=== PATIENT | female | born 1955 | race Caucasian/White ===

== ENCOUNTER 2016-11-22 15:59 | Inpatient (IN) | payer OTHER ==
--- NOTE | 2016-11-22 17:29 | RAD ---
Indication: RIGHT side face and lip numbness and LEFT side finger numbness yesterday. Presently asymptomatic. Comparison: No relevant prior exams available on the [facility] PACS for comparison. Technique: Noncontrast CT vertex of skull through foramen magnum. Report: Small focus of eastman matter white matter obscuration at the posterior RIGHT frontal lobe from the level of the salazar radiata through the centrum semiovale corresponding with the RIGHT middle cerebral artery distribution. Negative for mass effect. No additional region of eastman matter white matter obscuration evident. No intra or extra-axial hemorrhage evident. Unremarkable cerebral sulci, ventricles, and basal cisterns. Unremarkable orbital contents. No suspicious calvarial or skull base lesion evident. Clear visualized paranasal sinuses and mastoid air spaces. Unremarkable scalp. IMPRESSION: Small nonmass-like region of eastman matter white matter obscuration at the posterior RIGHT frontal lobe most suspicious for a subacute infarct. Negative for mass effect. Negative for intracranial hemorrhage.
[2016-11-22 17:50] LABS: Hematocrit 39 % (35-47); Hemoglobin 13.1 g/dl (12.0-16.0); Mean Corpuscular HGB Conc 34 g/dl (31-36); Mean Corpuscular Hemoglobin 30 pg (27-31); Mean Corpuscular Volume 88 fL (80-97); Mean Platelet Volume 7 um3 (7.4-10.4); Red Blood Count 4.42 10^6/ul (4.0-5.4); Red Cell Distribution Width 13 % (10.5-15); White Blood Count 4.4 10^3/ul (3.5-10.8)
--- NOTE | 2016-11-22 17:52 | RAD ---
INDICATION: Strokelike symptoms. COMPARISON: No relevant prior exams available on the [facility] PACS for comparison. TECHNIQUE: Dual energy PA and routine lateral views of the chest were obtained. REPORT: Clear lungs and pleural spaces. Negative for pneumothorax. The heart, pulmonary vasculature, and mediastinal contours are unremarkable. Unremarkable osseous structures and soft tissue contours. IMPRESSION: No evidence for acute intrathoracic disease.
[2016-11-22 18:06] LABS: ALT 12 U/L (7-52); AST 13 U/L (13-39); Albumin 4.2 g/dL (3.2-5.2); Alkaline Phosphatase 48 U/L (34-104); Anion Gap 3 mmol/L (2-11); BUN/Creatinine Ratio 13.3 (8-20); Blood Urea Nitrogen 16 mg/dL (6-24); CO2 Carbon Dioxide 26 mmol/L (22-32); Calcium 9.6 mg/dL (8.6-10.3); Chloride 111 mmol/L (101-111); EGFR African American 59.1 (>60); Glucose 87 mg/dL (70-100); Potassium 3.9 mmol/L (3.5-5.0); Sodium 140 mmol/L (133-145); Total Protein 7.2 g/dL (6.4-8.9)
[2016-11-22 18:09] LABS: Alcohol < 10 mg/dL (<10)
[2016-11-22] MEDS ORDERED: Aspirin Low Dose CHEW TAB* 81 MG PO ONE (18:28)
--- NOTE | 2016-11-22 20:08 | RAD ---
Indication: RIGHT side facial numbness with tingling in fingers of LEFT hand yesterday. Symptoms resolved at this time. Comparison: November 22, 2016 CT. Technique: [employer] [place] 1.5 Myranda [id number] with GEM suite. MRI brain without contrast. Report: Diffusion series is negative for acute or subacute ischemia. Susceptibility series is negative for stigmata of hemosiderin deposition to indicate previous hemorrhage. Unremarkable cerebral sulci, ventricles, and basal cisterns. Encephalomalacia with volume loss and T2 hyperintensity at the RIGHT parietal lobe. Negative for mass effect. Additional few small bilateral cerebral white matter T2 hyperintensities are visualized reference the axial T2 FLAIR series with dominant 0.5 cm lesion at the RIGHT frontal lobe white matter at the level of the salazar radiata.. Preserved major intracranial flow-voids. Unremarkable orbital contents. No calvarial or skull base lesions evident. Clear paranasal sinuses and mastoid air spaces. Unremarkable scalp. IMPRESSION: 1. Negative for restricted diffusion to indicate acute or subacute ischemia. 2. Encephalomalacia at the RIGHT parietal lobe likely reflecting a previous ischemic infarct. 3. Additional few small bilateral cerebral white matter T2 hyperintensities while not entirely specific are most suggestive of chronic small vessel ischemic disease. The differential would include demyelinating disease and hyperintensities seen in association with migraine headaches.
--- NOTE | 2016-11-22 20:18 | RAD ---
Indication: RIGHT side facial numbness and tingling in fingers of LEFT hand. Symptoms now resolved. Comparison: MRI of the same date and CT of the same date. Technique: [employer] [place] 1.5 Myranda [id number] with GEM suite. MR angiography 3-D [id number] data was obtained with rotational display of the [place] of [place] and posterior fossa arteries. Report: Unremarkable intracranial internal carotid arteries as well as the first and second segments of the middle and anterior cerebral arteries. No anterior communicating artery visualized. Patent distal vertebral arteries with both contributing to the basilar artery. The basilar artery is variant diminutive in size. Unremarkable cerebellar artery origins. Patent posterior cerebral arteries are supplied both by the posterior circulation and anterior circulation via posterior communicating arteries. No intracranial aneurysm or vascular malformation evident. IMPRESSION: Normal variation without pathologic finding of the central intracranial arterial vasculature.
[2016-11-22] MEDS ORDERED: Atorvastatin* 10 MG TAB PO SCH (21:00)
[2016-11-22] MEDS: Topiramate TAB(*) 25 MG PO SCH (21:18)
[2016-11-22] MEDS: [UNRECOGNIZED DRUG - OTHER] PO SCH (21:31)
--- NOTE | 2016-11-22 22:00 | HP ---
HISTORY AND PHYSICAL: DATE OF ADMISSION: 11/22/16 ADMITTING PROVIDER: Babatunde Melissa MD PRIMARY CARE PHYSICIAN: Rose Green MD CHIEF COMPLAINT: Left third, fourth and fifth finger numbness and lower lip numbness and speech impairment lasting 5 to 10 minutes, now completely resolved. HISTORY OF PRESENT ILLNESS: The patient is a 61-year-old female with past medical history of anxiety, depression, hyperlipidemia, hypothyroidism who on day prior to admission woke approximately 10 a.m. and quickly noticed that the third, fourth and fifth fingers on her left hand were completely numb, unable to adequately grasp cup and that her lower lip and tongue also seemed numb and she was unable to speak to her dog. These symptoms lasted for 5 to 10 minutes, then completely resolved. She followed up with her primary care physician, Dr. Rose Green, for her annual physical on the morning of admission who then advised her to seek immediate evaluation in the [facility] emergency room. The patient otherwise was feeling well with no complaints. Mood has been stable on her bupropion hydrobromide, Klonopin and Risperdal. She recently restarted her Topamax 50 mg b.i.d., which she takes for weight loss. Here in the emergency room, the patient was noted to be hemodynamically stable, afebrile. Her brain CT noncontrast, impression was read as a small non-mass like region of eastman matter, white matter obscuration at the posterior right frontal lobe more suspicious for subacute infarct, negative for mass effect, negative for intracranial hemorrhage. The patient was admitted for further workup of TIA versus CVA symptoms. Dr. Cuba of Neurology was consulted. The patient was ordered brain MRI and MRA of the head which are pending along with echocardiogram and admission to telemetry floor. PAST MEDICAL HISTORY: 1. Hyperlipidemia. 2. Anxiety. 3. Depression. 4. Hypothyroidism HOME MEDICATIONS: Include: 1. Lipitor 10 mg p.o. at bedtime. 2. Bupropion hydrobromide(Aplenzin) 522 mg p.o. daily . 4. Levothyroxine 150 mcg p.o. daily. 5. Topamax 50 mg p.o. b.i.d. 6. Klonopin 4 mg p.o. at bedtime. 7. Risperdal 3 mg p.o. at bedtime. ALLERGIES: PENICILLIN which produced hives. FAMILY HISTORY: Significant for a sister with lupus, father requiring permanent pacemaker. SOCIAL HISTORY: The patient denies smoking history or alcohol use. No drug use. The patient accompanied by her . REVIEW OF SYSTEMS: The patient denies fevers, chills, nausea, vomiting, diarrhea, constipation, blood in her bowel movements or urine, dysuria, increased frequency. A complete 14-point review of systems was negative otherwise except for HPI and above. The patient denies any neurological deficits at the moment. PHYSICAL EXAMINATION GENERAL APPEARANCE: No acute distress, lying on ED gurney. VITAL SIGNS: Temperature 97.5, heart rate 68, O2 sat 98% on room air, blood pressure 112/67. HEENT: Normocephalic, atraumatic. Oropharynx without lesion. Moist mucus membranes. No cervical lymphadenopathy. NECK: Supple. RESPIRATORY: Clear to auscultation bilaterally with no wheezing, rales or rhonchi. CARDIOVASCULAR: Regular rate and rhythm. No murmurs, rubs or gallops. ABDOMEN: Soft, nontender, nondistended. No rebound or guarding. EXTREMITIES: Warm, well perfused. No peripheral edema. Pulses intact. NEUROLOGIC: Pupils are equally round and reactive to light. Extraocular motions are intact. Cranial nerves II through XII intact. Pilot Manager strength, biceps and shoulders 5/5 bilaterally, hip flexion 5/5, calves 5/5. Sensation intact bilaterally. LABORATORY DATA: White count 4.4, hemoglobin 13.1, hematocrit 39, platelets 209,000. Sodium 140, potassium 3.9, chloride 111, carbon dioxide 26, BUN 16, creatinine 1.20. Estimated GFR 46, glucose 87, lactic acid 0.7, calcium 9.6. LFT's within normal limits. Serum alcohol less than 10. IMAGING: Chest x-ray, no acute process. EKG, normal sinus rhythm. Normal axis. Normal intervals, QTC 412. No ST elevations or depressions. No T-wave inversions. CT of brain as mentioned above. ASSESSMENT AND PLAN: The patient is a 61-year-old female with a past medical history of anxiety, depression, hyperlipidemia, presenting with transient ischemic attack-like symptoms, but somewhat weird distribution with bilateral lower lip numbness along with third, fourth and fifth left finger numbness resolving after 5 to 10 minutes. Neurology was consulted (Dr. Cuba). We will get an MRI of her brain, MRA of her head, monitored on telemetry and an echo was ordered to include a bubble study to rule out PFO. We will observe for any evidence of atrial fibrillation. Of note, the patient denies any history of palpitations. For hypothyroidism, continue Synthroid 150 mcg daily. For anxiety and depression, continue bupropion hydrobromide (Aplenzin) 522 mg daily, Klonopin 4 mg q.p.m. and Risperdal 3 mg q. h.s. For hyperlipidemia, continue Lipitor 10 mg daily. The patient will be admitted to observation status, medicine telemetry unit. The patient will be able to eat a cardiac heart healthy diet. Aspirin 324 mg was given in the ED. We will continue 81 mg daily for CVA prophylaxis, given no evidence of intracranial hemorrhage. The patient is a full code. Medical surrogate is her , Rafat Jr Ozzy. [id number]/[facility] #: [id number] MTDDontae
[2016-11-22] MEDS: clonazePAM TAB(*) 1 MG PO SCH (22:38)
[2016-11-22] MEDS: risperiDONE TAB* 3 MG PO SCH (22:38)
[2016-11-23 05:16] LABS: Hematocrit 36 % (35-47); Hemoglobin 12.1 g/dl (12.0-16.0); Mean Corpuscular HGB Conc 34 g/dl (31-36); Mean Corpuscular Hemoglobin 30 pg (27-31); Mean Corpuscular Volume 88 fL (80-97); Mean Platelet Volume 7 um3 (7.4-10.4); Red Blood Count 4.06 10^6/ul (4.0-5.4); Red Cell Distribution Width 13 % (10.5-15); White Blood Count 5.1 10^3/ul (3.5-10.8)
[2016-11-23 05:25] LABS: BUN/Creatinine Ratio 14.3 (8-20); Calcium 8.9 mg/dL (8.6-10.3); EGFR African American 52.5 (>60); EGFR Non-African American 40.8 (>60); Potassium 3.5 mmol/L (3.5-5.0)
[2016-11-23] MEDS: Levothyroxine TAB* 150 MCG TAB PO SCH (05:45)
[2016-11-23] MEDS: Topiramate TAB(*) 25 MG PO SCH ×2 (07:33→20:10)
[2016-11-23] MEDS: Aspirin Low Dose CHEW TAB* 81 MG PO SCH (07:33)
[2016-11-23 10:56] LABS: Urine Bacteria Absent (Absent); Urine Bilirubin Negative (Negative); Urine Glucose Negative (Negative); Urine Nitrite Negative (Negative)
[2016-11-23] MEDS: [UNRECOGNIZED DRUG - OTHER] PO SCH (11:33)
[2016-11-23] MEDS: Acetaminophen TAB* 325 MG PO PRN ×2 (11:42→20:11)
--- NOTE | 2016-11-23 13:52 | CONS ---
CONSULTATION REPORT: DATE OF CONSULT: 11/23/16. LOCATION: She is currently in room 433, bed 1. REASON FOR CONSULT: Left finger numbness, speech difficulty. HISTORY OF PRESENT ILLNESS: Ms. Preciado is a very nice 61-year-old female with a history of hyperlipidemia, some depression and anxiety, who was in her usual state of health when she developed acute onset of left third, fourth and fifth digit numbness as well as some numbness that cross the midline across the lower lip and she also noticed some drooling and had some difficulty speaking at that time. She noted that she tried to picker packer a cup and it was more difficult to do. She tried to speak with to her dog and had more difficulty producing words. The symptoms lasted about 5 minutes and then resolved. This happened 2 days ago. She did not go to the ER initially. She went to see her primary care physician for a checkup yesterday, who based on the symptoms decided to send her to the ER for further workup. By the time she came to the ER she had been symptom free for over 24 hours. She had a brain MRI, which I reviewed, showed no evidence of DWI or ADC changes to suggest an acute stroke. She had encephalomalacia from a prior right parietal stroke and then some scattered white matter changes suggestive of chronic small vessel ischemic changes. She had an MRA of the brain, which showed no intracranial arterial abnormalities. Brain CT as well showed no acute changes. It showed an area in the right frontal lobe which was suspicious for a subacute infarct, not confirmed on the MRI. Her lab work at the time of admission was essentially normal, chloride of 113, creatinine of 1.2. She had a recent lipid panel with a cholesterol of 200 and LDL of 110. She is on a statin. She was not previously on an aspirin, but put on one yesterday. Since admission to the hospital she notes some headache in the left parietal region. She about 2 weeks ago had another headache in that area and does not have a history of headaches. There were no focal deficits at that time. She notes no focal right-sided findings. No left leg findings. No difficulty walking. No vision changes. Otherwise, she has been in her usual state of health. She denies any palpitation, shortness of breath, dyspnea on exertion, nausea, vomiting, diarrhea or constipation. She has no history of AFib or heart palpitations. PAST MEDICAL HISTORY: As noted above. CURRENT MEDICATIONS: Include; 1. Tylenol p.r.n. 2. Aspirin 81 mg daily. 3. Lipitor 10 mg at bedtime. 4. Klonopin 4 mg at bedtime. 5. Synthroid 150 mcg. 6. Bupropion 522 mg daily. 7. Risperdal 3 mg at bedtime. 8. Topamax 50 mg p.o. b.i.d. which she takes for weight loss. ALLERGIES: She is allergic to PENICILLIN. FAMILY HISTORY: Includes lupus in a sister and a father with a pacemaker. SOCIAL HISTORY: No tobacco, alcohol or drug use. REVIEW OF SYSTEMS: In 14 organ systems as noted above, otherwise negative. PHYSICAL EXAM: Vital Signs: Temperature is 98.2, pulse rate of 61, respiratory rate of 20, blood pressure 94/54, her blood pressure has been well controlled and stable during the hospitalization. In general, she is a well nourished, well developed female in no acute distress. HEENT: She is normocephalic atraumatic. Sclerae anicteric. Mucous membranes are moist. Oropharynx is clear. Nares are patent. Neck is supple. No thyromegaly. No carotid bruits. Chest: Clear to auscultation bilaterally. Cardiovascular: Regular rate and rhythm. Abdomen is nontender, nondistended. Extremities: No clubbing, cyanosis, or edema. Her skin is warm and dry. Neurologic Exam: She is awake, alert and oriented x3. Her speech is fluent. There is no dysarthria. Repetition is intact. Recall of recent and remote events is intact. Vocabulary is intact. Her mood is dysthymic. Affect is mood congruent. Cranial Nerves: II through XII. Pupils are equally round and reactive to light. Extraocular muscles are intact. Visual mon are full. Face is symmetric. Facial sensation is intact bilaterally. Hearing is symmetric bilaterally. Tongue is midline. Oropharynx is clear and palate rises symmetrically. Sternocleidomastoid and trapezius intact. She spontaneously moves all extremities, antigravity 5/5 throughout. There is no drift. Sensation is intact to light touch and pinprick in all extremities throughout and there is no deficit. DTRs are 1+ and symmetric in the upper and lower extremities bilaterally equivocal Babinski's. [id number] and rapid alternating movements are intact without any tremor or dysdiadochokinesia. Gait was not tested at this time. DIAGNOSTIC STUDIES/LAB DATA: Lab work and imaging as noted above. ASSESSMENT AND PLAN: Ms. Preciado is a 61-year-old female with a history of acute onset of left third fourth and fifth digit numbness and some lip numbness across the entire lower lip, some word finding difficulties, and drooling that lasted for about 5 minutes and resolved; this happened 2 days ago. She saw her primary care physician yesterday who put her on an aspirin and sent her to the ER. Subsequent workup in the ER today has been negative except she does have evidence of an old stroke which she was unaware of. Also her outside lab work included a cholesterol that was elevated 200, LDL of 110. At this point, her symptoms are unusual, given the specific focality it would be unusual for a TIA , although not of the question in addition she had numbness across her entire lower lip crossing midline which is atypical and more associated with anxiety. With that said, she does have risk factors including a prior stroke and hyperlipidemia. I would recommend the followin. Continue her aspirin 81 mg daily. 2. Increase her statin with a goal LDL less than 70. 3. High blood pressure control as needed. 4. She is a nondiabetic. 5. She is a nonsmoker. I am going to order a carotid ultrasound. I think, at this point, given the fact that she has no cardiac history, is stable and doing well, and that her symptoms occurred several days ago that she can have the echocardiogram as an outpatient in the next week. I would like to follow her up in clinic in 4 weeks. Assuming her carotid ultrasound is negative, I do think it is safe to go home. She is aware of the symptoms and will return to the ER immediately should she have any new symptoms develop, which she is in agreement with the plan. Thank you for the opportunity to participate in her care. [id number]/[facility] #: [id number] WOODY
--- NOTE | 2016-11-23 14:52 | PN ---
Subjective Date of Service: 11/23/16 Interval History: Pt did not sleep well but otherwise feels better (mostly less anxious now that in hospital). Brain MRI with e/o of old stroke but nothing acute or subacute. NAEON Objective Active Medications: Acetaminophen (Tylenol Tab*) 650 mg PO Q6H PRN PRN Reason: HEADACHE Last Admin: 11/23/16 11:42 Dose: 650 mg Aspirin (Aspirin Low Dose Tab*) 81 mg PO DAILY [facility] Last Admin: 11/23/16 07:33 Dose: 81 mg Atorvastatin Calcium (Lipitor*) 40 mg PO 2100 [facility] Clonazepam (Klonopin Tab(*)) 4 mg PO BEDTIME [facility] Last Admin: 11/22/16 22:38 Dose: 4 mg Levothyroxine Sodium (Synthroid Tab*) 150 mcg PO 0600 [facility] Last Admin: 11/23/16 05:45 Dose: 150 mcg Bupropion Hydrobromide [ Aplenzin] 522 Mg 522 mg PO DAILY [facility] Last Admin: 11/23/16 11:33 Dose: Not Given Risperidone (Risperdal*) 3 mg PO BEDTIME [facility] Last Admin: 11/22/16 22:38 Dose: 3 mg Topiramate (Topamax(*)) 50 mg PO BID [facility] Last Admin: 11/23/16 07:33 Dose: 50 mg Vital Signs 11/22/16 11/22/16 11/22/16 19:10 22:38 23:14 Temperature 99 F 98.6 F Pulse Rate 80 81 Respiratory 16 14 22 Rate Blood Pressure 119/72 120/68 (mmHg) O2 Sat by Pulse 100 96 Oximetry 11/23/16 11/23/16 11/23/16 00:38 03:13 07:15 Temperature 98.2 F 98.2 F Pulse Rate 87 61 Respiratory 16 18 20 Rate Blood Pressure 98/64 94/54 (mmHg) O2 Sat by Pulse 96 97 Oximetry 11/23/16 11/23/16 07:30 11:24 Temperature 98.3 F Pulse Rate 73 Respiratory 20 24 Rate Blood Pressure 116/61 (mmHg) O2 Sat by Pulse 97 Oximetry Oxygen Devices in Use Now: None Appearance: NAD, lying in bed Eyes: No Scleral Icterus, PERRLA Ears/Nose/Mouth/Throat: NL Teeth, Lips, Gums, Mucous Membranes Moist Neck: NL Appearance and Movements; NL JVP, Trachea Midline Respiratory: Symmetrical Chest Expansion and Respiratory Effort, Clear to Auscultation Cardiovascular: NL Sounds; No Murmurs; No JVD, RRR Abdominal: NL Sounds; No Tenderness; No Distention, No Hepatosplenomegaly Lymphatic: No Cervical Adenopathy Extremities: No Edema Skin: No Rash or Ulcers, No Nodules or Sclerosis Neurological: Alert and Oriented x 3, NL Sensation, NL Muscle Strength and Tone , - - CN II-XII intact. Casino Cage Manager, bicep, hip flexion, calf 5/5 b/l. Nutrition: Taking PO's Result Diagrams: 11/23/16 04:58 11/23/16 04:47 Additional Lab and Data: Laboratory Results - last 24 hr 11/22/16 11/22/16 11/22/16 10:19 17:20 17:20 WBC 4.4 RBC 4.42 Hgb 13.1 Hct 39 MCV 88 MCH 30 MCHC 34 RDW 13 Plt Count 209 MPV 7 L Neut % (Auto) 63.2 Lymph % (Auto) 27.1 [place] % (Auto) 7.5 Eos % (Auto) 1.6 Baso % (Auto) 0.6 Absolute Neuts (auto) 2.8 Absolute Lymphs (auto) 1.2 Absolute Monos (auto) 0.3 Absolute Eos (auto) 0.1 Absolute Basos (auto) 0 Absolute Nucleated RBC 0 Nucleated RBC % 0 INR (Anticoag Therapy) Sodium 140 Potassium 3.9 Chloride 111 Carbon Dioxide 26 Anion Gap 3 BUN 16 Creatinine 1.20 H Est GFR ( Amer) 59.1 Est GFR (Non-Af Amer) 46.0 BUN/Creatinine Ratio 13.3 Glucose 87 Lactic Acid Calcium 9.6 Total Bilirubin 0.60 AST 13 ALT 12 Alkaline Phosphatase 48 Troponin I 0.00 Total Protein 7.2 Albumin 4.2 Globulin 3.0 Albumin/Globulin Ratio 1.4 Urine Color Yellow Urine Appearance Cloudy Urine pH 6.0 Ur Specific [place] 1.023 Urine Protein Negative Urine Ketones Negative Urine Blood Negative Urine Nitrate Negative Urine Bilirubin Negative Urine Urobilinogen Negative Ur Leukocyte Esterase 3+ H Urine WBC (Auto) 3+(>20/hpf) H Urine RBC (Auto) Absent Ur Squamous Epith Cells Present H Ur Renal Epithelial Cell Present H Urine Bacteria Absent Urine Glucose Negative Serum Alcohol < 10 11/22/16 11/22/16 11/23/16 17:20 17:20 04:47 WBC RBC Hgb Hct MCV MCH MCHC RDW Plt Count MPV Neut % (Auto) Lymph % (Auto) [place] % (Auto) Eos % (Auto) Baso % (Auto) Absolute Neuts (auto) Absolute Lymphs (auto) Absolute Monos (auto) Absolute Eos (auto) Absolute Basos (auto) Absolute Nucleated RBC Nucleated RBC % INR (Anticoag Therapy) 0.90 Sodium 140 Potassium 3.5 Chloride 113 H Carbon Dioxide 24 Anion Gap 3 BUN 19 Creatinine 1.33 H Est GFR ( Amer) 52.5 Est GFR (Non-Af Amer) 40.8 BUN/Creatinine Ratio 14.3 Glucose 93 Lactic Acid 0.7 Calcium 8.9 Total Bilirubin AST ALT Alkaline Phosphatase Troponin I Total Protein Albumin Globulin Albumin/Globulin Ratio Urine Color Urine Appearance Urine pH Ur Specific [place] Urine Protein Urine Ketones Urine Blood Urine Nitrate Urine Bilirubin Urine Urobilinogen Ur Leukocyte Esterase Urine WBC (Auto) Urine RBC (Auto) Ur Squamous Epith Cells Ur Renal Epithelial Cell Urine Bacteria Urine Glucose Serum Alcohol 11/23/16 04:58 WBC 5.1 RBC 4.06 Hgb 12.1 Hct 36 MCV 88 MCH 30 MCHC 34 RDW 13 Plt Count 201 MPV 7 L Neut % (Auto) 54.3 Lymph % (Auto) 34.0 [place] % (Auto) 8.6 Eos % (Auto) 2.4 Baso % (Auto) 0.7 Absolute Neuts (auto) 2.8 Absolute Lymphs (auto) 1.7 Absolute Monos (auto) 0.4 Absolute Eos (auto) 0.1 Absolute Basos (auto) 0 Absolute Nucleated RBC 0 Nucleated RBC % 0 INR (Anticoag Therapy) Sodium Potassium Chloride Carbon Dioxide Anion Gap BUN Creatinine Est GFR ( Amer) Est GFR (Non-Af Amer) BUN/Creatinine Ratio Glucose Lactic Acid Calcium Total Bilirubin AST ALT Alkaline Phosphatase Troponin I Total Protein Albumin Globulin Albumin/Globulin Ratio Urine Color Urine Appearance Urine pH Ur Specific [place] Urine Protein Urine Ketones Urine Blood Urine Nitrate Urine Bilirubin Urine Urobilinogen Ur Leukocyte Esterase Urine WBC (Auto) Urine RBC (Auto) Ur Squamous Epith Cells Ur Renal Epithelial Cell Urine Bacteria Urine Glucose Serum Alcohol Assess/Plan/Problems-Billing Assessment: 61 year old female PMH anxiety/depression p/w with transient focal neurological deficit (left 3-5th finger and lower lip numbness, speech difficulty. Brain MRI w/ e/o of prior rt parietal stroke. TIA workup, pending TTE and Carotid US. Head MRA wnl. No Afib hx. - Patient Problems (1) TIA (transient ischemic attack) Current Visit: Yes Status: Acute Comment: MRI brain w/ previous CVA right parietal but no acute. telemonitor and EKG no e/o Afib f/u TTE w/ bubble study f/u carotid US increase atorvastatin appreciate Neurology recs continue aspirin 81mg daily (2) CVA (cerebral vascular accident) Current Visit: Yes Status: Acute Code(s): I63.9 - CEREBRAL INFARCTION, UNSPECIFIED SNOMED Code(s): 924685347 Comment: e/o of right parietal encaphalomalechia on Brain MRI w/o 11/22. TIA w/u as above. (3) Anxiety and depression Current Visit: Yes Status: Acute Code(s): F41.8 - OTHER SPECIFIED ANXIETY DISORDERS SNOMED Code(s): 358788976 Comment: Continue home meds: - buproprion hydrobromide 522mg daily - risperidal 3mg qhs - klonopin 4mg qhs also on topomax for "weight loss" (4) Hypothyroid Current Visit: Yes Status: Acute Code(s): E03.9 - HYPOTHYROIDISM, UNSPECIFIED SNOMED Code(s): 97323207 Comment: continue home synthroid 150mcg Status and Disposition: medicine observation awaiting TTE and carotid doppler. If unable to do by end of HD#2 will change to inpatient status. d/c pending these studies. Attending: Babatunde Melissa
--- NOTE | 2016-11-23 18:52 | ED ---
Matt Pettit Thomas, scribed for Anthony Reaves MD on 11/22/16 at 1657 . Neurological HPI - HPI Summary HPI Summary: The patient is a 61 y/o F presenting to the ED c/o a 5-minute episode yesterday in which she had numbness to the fingers on her left hand, numbness to her lips , and was aphasic. She was unable to drink secondary to the numbness and when I said stuff, it came out all garbled. These symptoms resolved after five minutes and she had no more episodes yesterday or today. She is asymptomatic in the ED. She denies any pain or symptoms at this time. PMHx: depression, anxiety , hypothyroidism, and HLD. She is on Synthroid, atorvastatin, aplenzin, klonopin , risperidone, and topiramate. She is accompanied by her . Her PMD is Dr. Gardiner. 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 Onset/Duration: Started days ago - 15-minute episode of pain yesterday, Resolved Current Severity: None Pain Intensity: 0 Pain Scale Used: 0-10 Numeric Character: Other: - Aphasia Aggravating: Nothing Alleviating: Spontanious Resolution Associated Signs and Symptoms: Positive: Numbness - to fingers of left hand and lips - Allergy/Home Medications Allergies/Adverse Reactions: Allergies Allergy/AdvReac Type Severity Reaction Status Date / Time Penicillins [PCN] Allergy Rash Verified 11/22/16 16:05 Home Medications: Home Medications Atorvastatin* [Lipitor*] 10 mg PO BEDTIME 11/22/16 [History Confirmed 11/22/16] Bupropion Hydrobromide [Aplenzin] 522 mg PO DAILY 11/22/16 [History Confirmed ] Levothyroxine TAB* [Synthroid TAB*] 150 mcg PO DAILY 11/22/16 [History Confirmed 11/22/16] Topiramate TAB(*) [Topamax 25 MG tab] 50 mg PO BID 11/22/16 [History Confirmed 11/22/16] clonazePAM TAB(*) [KlonoPIN TAB(*)] 4 mg PO BEDTIME 11/22/16 [History Confirmed 11/22/16] risperiDONE TAB* [RisperDAL*] 3 mg PO BEDTIME 11/22/16 [History Confirmed ] PMH/Surg Hx/FS Hx/Imm Hx Previously Healthy: No Endocrine/Hematology History: Reports: Hx Thyroid Disease - hypothyroidism Cardiovascular History: Reports: Hx Hypercholesterolemia Psychiatric History: Reports: Hx Anxiety, Hx Depression - Cancer History Hx Chemotherapy: No Hx Radiation Therapy: No - Surgical History Surgery Procedure, Year, and Place: None. Infectious Disease History: No Infectious Disease History: Denies: Traveled Outside the [place] in Last 30 Days - Family History Known Family History: Positive: Diabetes - Social History Alcohol Use: Occasionally Hx Substance Use: No Substance Use Type: Reports: None Hx Tobacco Use: No Smoking Status (MU): Never Smoked Tobacco Review of Systems Negative: Fever Neurological: Other - Aphasia (none in ED) Positive: Numbness - to fingers of left hand and lips (none in ED) All Other Systems Reviewed And Are Negative: Yes Physical Exam - Summary Physical Exam Summary: VITAL SIGNS: Reviewed. GENERAL: Patient is a well-developed and nourished female who is lying comfortable in the stretcher. Patient is not in any acute respiratory distress. HEAD AND FACE: No signs of trauma. No ecchymosis, hematomas or skull depressions. No sinus tenderness. EYES: PERRLA, EOMI x 2, No injected conjunctiva, no nystagmus. No photophobia. EARS: Hearing grossly intact. Ear canals and tympanic membranes are within normal limits. MOUTH: Oropharynx within normal limits. NECK: Supple, trachea is midline, no adenopathy, no JVD, no carotid bruit, no c- spine tenderness, neck with full ROM. No meningeal signs, no Kernig's or brudzinskis signs. CHEST: Symmetric, no tenderness at palpation LUNGS: Clear to auscultation bilaterally. No wheezing or crackles. CVS: Regular rate and rhythm, S1 and S2 present, no murmurs or gallops appreciated. ABDOMEN: Soft, non-tender. No signs of distention. No rebound no guarding, and no masses palpated. Bowel sounds are normal. EXTREMITIES: FROM in all major joints, no edema, no cyanosis or clubbing. NEURO: Alert and oriented x 3. No acute neurological deficits. Speech is normal and follows commands. SKIN: Dry and warm GCS: 15 Triage Information Reviewed: Yes Vital Signs On Initial Exam: Initial Vitals Temp Pulse Resp BP Pulse Ox 98.3 F 71 20 155/76 99 11/22/16 16:02 11/22/16 16:02 11/22/16 16:02 11/22/16 16:02 11/22/16 16:02 Vital Signs Reviewed: Yes Diagnostics - Vital Signs Vital Signs Temp Pulse Resp BP Pulse Ox 11/22/16 16:02 98.3 F 71 20 155/76 99 - Laboratory Result Diagrams: 11/22/16 17:20 11/22/16 17:20 Lab Statement: Any lab studies that have been ordered have been reviewed, and results considered in the medical decision making process. - Radiology CXR Xray Interpretation: No Acute Changes - No evidence for acute intrathoracic disease. ED physician has reviewed this report and agrees. Radiology Interpretation Completed By: Radiologist - CT CT Brain CT Interpretation: Positive (See Comments) - Small nonmass-like region of eastman matter white matter obscuration at the posterior RIGHT frontal lobe most suspicious for a subacute infarct. Negative for mass effect. Negative for intracranial hemorrhage. ED physician has reviewed this report and agrees. CT Interpretation Completed By: Radiologist - EKG 17:11 Cardiac Rate: NL - 67 BPM EKG Rhythm: Sinus Rhythm EKG Interpretation: No ST elevations. Similar to previous EKG on 08/14/16. Course/Dx - Course Assessment/Plan: The patient is a 61 y/o F presenting to the ED c/o a 5-minute episode yesterday in which she had numbness to the fingers on her left hand, numbness to her lips, and was aphasic. She was unable to drink secondary to the numbness and when I said stuff, it came out all garbled. These symptoms resolved after five minutes and she had no more episodes yesterday or today. She is asymptomatic in the ED. She denies any pain or symptoms at this time. PMHx: depression, anxiety, hypothyroidism, and HLD. She is on Synthroid, atorvastatin, aplenzin, klonopin, risperidone, and topiramate. She is accompanied by her . Her PMD is Dr. Gardiner. Test results are without significant abnormalities except creatinine 1.2. Head CT shows Small nonmass- like region of eastman matter white matter obscuration at the posterior RIGHT frontal lobe most suspicious for a subacute infarct. Negative for mass effect. Negative for intracranial hemorrhage. In the ED course, the patient was given ASA. I discussed the case with Dr. Melissa who accepts the patient for admission for further workup of subacute ischemic stroke. - Diagnoses Provider Diagnoses: Subacute ischemic stroke - Physician Notifications Discussed Care Of Patient With: Babatunde Melissa Time Discussed With Above Provider: 18:50 Instructed by Provider To: Other - I consulted with Dr. Melissa, hospitalist, who accepts the patient for admission. Discharge - Discharge Plan Condition: Fair Disposition: ADMITTED TO [facility] The documentation as recorded by the Matt yao Thomas accurately reflects the service I personally performed and the decisions made by me, Anthony Reaves MD.
[2016-11-23] MEDS: clonazePAM TAB(*) 1 MG PO SCH (20:09)
[2016-11-23] MEDS: Atorvastatin* 40 MG TAB PO SCH (20:10)
[2016-11-23] MEDS: risperiDONE TAB* 3 MG PO SCH (20:10)
[2016-11-24 05:16] LABS: Hematocrit 36 % (35-47); Hemoglobin 12.2 g/dl (12.0-16.0); Mean Corpuscular HGB Conc 34 g/dl (31-36); Mean Corpuscular Hemoglobin 30 pg (27-31); Mean Corpuscular Volume 88 fL (80-97); Mean Platelet Volume 7 um3 (7.4-10.4); Red Blood Count 4.07 10^6/ul (4.0-5.4); Red Cell Distribution Width 13 % (10.5-15); White Blood Count 4.7 10^3/ul (3.5-10.8)
[2016-11-24 05:29] LABS: BUN/Creatinine Ratio 12.7 (8-20); EGFR African American 52.1 (>60); EGFR Non-African American 40.5 (>60); Potassium 3.4 mmol/L (3.5-5.0)
[2016-11-24] MEDS: Levothyroxine TAB* 150 MCG TAB PO SCH (05:50)
[2016-11-24] MEDS: Topiramate TAB(*) 25 MG PO SCH ×2 (08:26→20:29)
[2016-11-24] MEDS: [UNRECOGNIZED DRUG - OTHER] PO SCH (08:26)
[2016-11-24] MEDS: Aspirin Low Dose CHEW TAB* 81 MG PO SCH (08:26)
[2016-11-24] MEDS ORDERED: Bisacodyl EC TAB* 5 MG PO ONE (10:00)
--- NOTE | 2016-11-24 16:24 | PN ---
Subjective Date of Service: 11/24/16 Interval History: MANDYON. Still waiting on ECHO and carotid doppler. No e/o of Afib on tele. Could not remember who the president was last night and in AM which is unusual for her. Objective Active Medications: Acetaminophen (Tylenol Tab*) 650 mg PO Q6H PRN PRN Reason: HEADACHE Last Admin: 11/23/16 20:11 Dose: 650 mg Aspirin (Aspirin Low Dose Tab*) 81 mg PO DAILY [facility] Last Admin: 11/24/16 08:26 Dose: 81 mg Atorvastatin Calcium (Lipitor*) 40 mg PO 2100 [facility] Last Admin: 11/23/16 20:10 Dose: 40 mg Clonazepam (Klonopin Tab(*)) 4 mg PO BEDTIME [facility] Last Admin: 11/23/16 20:09 Dose: 4 mg Levothyroxine Sodium (Synthroid Tab*) 150 mcg PO 0600 [facility] Last Admin: 11/24/16 05:50 Dose: 150 mcg Pto:Bupropion Hydrobromide [ Aplenzin] 522 Mg 522 mg PO DAILY [facility] Last Admin: 11/24/16 08:26 Dose: 522 mg Risperidone (Risperdal*) 3 mg PO BEDTIME [facility] Last Admin: 11/23/16 20:10 Dose: 3 mg Topiramate (Topamax(*)) 50 mg PO BID [facility] Last Admin: 11/24/16 08:26 Dose: 50 mg Vital Signs 11/23/16 11/23/16 11/23/16 19:33 20:09 22:09 Temperature 99.0 F Pulse Rate 77 Respiratory 16 20 18 Rate Blood Pressure 92/54 (mmHg) O2 Sat by Pulse 96 Oximetry 11/24/16 11/24/16 11/24/16 00:12 00:19 00:25 Temperature 98.4 F 98.0 F Pulse Rate 65 72 Respiratory 16 18 Rate Blood Pressure 89/52 86/48 96/62 (mmHg) O2 Sat by Pulse 96 97 Oximetry 11/24/16 11/24/16 11/24/16 04:05 04:29 07:16 Temperature 97.8 F 97.5 F 97.6 F Pulse Rate 64 59 62 Respiratory 20 16 20 Rate Blood Pressure 97/56 90/63 86/51 (mmHg) O2 Sat by Pulse 96 95 98 Oximetry 1011/24/16 11/24/16 07:25 08:00 09:47 Temperature Pulse Rate Respiratory 20 Rate Blood Pressure 108/60 90/62 (mmHg) O2 Sat by Pulse Oximetry Oxygen Devices in Use Now: None Appearance: NAD Eyes: No Scleral Icterus, PERRLA Ears/Nose/Mouth/Throat: NL Teeth, Lips, Gums, Mucous Membranes Moist Neck: NL Appearance and Movements; NL JVP Respiratory: Symmetrical Chest Expansion and Respiratory Effort, Clear to Auscultation Cardiovascular: NL Sounds; No Murmurs; No JVD, RRR Abdominal: NL Sounds; No Tenderness; No Distention, No Hepatosplenomegaly Skin: No Rash or Ulcers, No Nodules or Sclerosis Neurological: Alert and Oriented x 3, NL Sensation, NL Muscle Strength and Tone Result Diagrams: 11/24/16 04:48 11/24/16 04:48 Additional Lab and Data: Laboratory Results - last 24 hr 11/24/16 11/24/16 04:48 04:48 WBC 4.7 RBC 4.07 Hgb 12.2 Hct 36 MCV 88 MCH 30 MCHC 34 RDW 13 Plt Count 190 MPV 7 L Neut % (Auto) 48.5 Lymph % (Auto) 39.8 [place] % (Auto) 8.3 Eos % (Auto) 2.6 Baso % (Auto) 0.8 Absolute Neuts (auto) 2.3 Absolute Lymphs (auto) 1.9 Absolute Monos (auto) 0.4 Absolute Eos (auto) 0.1 Absolute Basos (auto) 0 Absolute Nucleated RBC 0 Nucleated RBC % 0.1 Sodium 140 Potassium 3.4 L Chloride 113 H Carbon Dioxide 24 Anion Gap 3 BUN 17 Creatinine 1.34 H Est GFR ( Amer) 52.1 Est GFR (Non-Af Amer) 40.5 BUN/Creatinine Ratio 12.7 Glucose 89 Calcium 9.0 Assess/Plan/Problems-Billing Assessment: 61 year old female PMH anxiety/depression p/w with transient focal neurological deficit (left 3-5th finger and lower lip numbness, speech difficulty. Brain MRI w/ e/o of prior rt parietal stroke. TIA workup, pending TTE and Carotid US. Head MRA wnl. No Afib hx. - Patient Problems (1) TIA (transient ischemic attack) Current Visit: Yes Status: Acute Comment: MRI brain w/ previous CVA right parietal but no acute. telemonitor and EKG no e/o Afib f/u TTE w/ bubble study f/u carotid US increased atorvastatin to 40mg appreciate Neurology recs continue aspirin 81mg daily (2) CVA (cerebral vascular accident) Current Visit: Yes Status: Acute Code(s): I63.9 - CEREBRAL INFARCTION, UNSPECIFIED SNOMED Code(s): 678536602 Comment: e/o of right parietal encaphalomalechia on Brain MRI w/o 11/22. TIA w/u as above. (3) Anxiety and depression Current Visit: Yes Status: Acute Code(s): F41.8 - OTHER SPECIFIED ANXIETY DISORDERS SNOMED Code(s): 539414762 Comment: Continue home meds: - buproprion hydrobromide 522mg daily - risperidal 3mg qhs - klonopin 4mg qhs Managed by Dr. Celaya [facility], has been on these for several years. also on topomax for "weight loss" (4) Hypothyroid Current Visit: Yes Status: Acute Code(s): E03.9 - HYPOTHYROIDISM, UNSPECIFIED SNOMED Code(s): 25697375 Comment: continue home synthroid 150mcg Status and Disposition: Changed to medicine inpatient last night given prolonged delay in getting TTE ( ordered on admission in ED) and carotid doppler. d/c pending these studies. Attending: Babatunde Melissa
[2016-11-24] MEDS ORDERED: clonazePAM TAB(*) 1 MG PO SCH (19:05)
[2016-11-24] MEDS: Atorvastatin* 40 MG TAB PO SCH (20:28)
[2016-11-24] MEDS: risperiDONE TAB* 3 MG PO SCH (20:29)
--- NOTE | 2016-11-24 21:22 | PN ---
PROGRESS NOTE: DATE OF PROGRESS NOTE: 11/24/16 CURRENT LOCATION: 433, bed 1. SUBJECTIVE: Overall, she has done well overnight. No new neurologic symptoms. She has had no new numbness or tingling. She has had no headaches, those have resolved. She feels well and wants to go home. She is awaiting her echocardiogram and carotid ultrasound. OBJECTIVE: Vital Signs: Temp of 97.6, blood pressure of 186/51 to 90/63, pulse of 62, respiratory rate of 20, pulse ox is 98%. General: She is a well- nourished, well-developed female sitting in her hospital bed. Her is at the bedside. She is drinking tea. She is pleasant, well dressed, well groomed. HEENT: She is normocephalic, atraumatic. Sclerae anicteric. Mucous membranes are moist. Oropharynx is clear. Neck is supple. Chest: Clear to auscultation bilaterally. Cardiovascular is regular rate and rhythm. Abdomen is nontender. Extremities: No clubbing, cyanosis, or edema. Neurologic Exam: She is awake, alert, and oriented x3. Her speech is fluent. There is no dysarthria. Repetition is intact. Recall is intact. Mood is dysthymic. Affect mood-congruent. Cranial nerves II through XII. Pupils are equal, round and reactive to light. Extraocular muscles are intact. Visual mon are full. Face is symmetric. Sensation is intact. Tongue is midline. Palate is symmetric. Hearing is intact. She is spontaneously moving all extremities antigravity, 5/5 throughout. No drift. Sensation is intact to light touch and pinprick throughout. DTRs are 1+ and symmetric in the upper and lower extremities. Downgoing Babinski. Gait was not tested at this time. DIAGNOSTIC STUDIES: Currently, she is awaiting her echocardiogram and carotid ultrasound. PLAN: Ms. Preciado is a 61-year-old female with a history of lip numbness and some word finding difficulties and left hand third, fourth, and fifth digit numbness. It lasted for a few minutes and then resolved. She is here for a TIA workup. So far, the workup has been negative. She is awaiting echocardiogram and carotid ultrasound and then will be discharged likely today. She is to go home on aspirin, statin. She is on clonazepam and risperidone for anxiety. She is also on topiramate for weight loss. At this point, I have nothing further to add. I am going to sign off. She is to follow up with me in 4 weeks in clinic and I will review all of her studies and make sure that she is on appropriate secondary stroke risk factor reduction. Thank you for the opportunity to participate in her care. [id number]/[facility] #: [id number] [place]
[2016-11-25 05:22] LABS: Hematocrit 35 % (35-47); Hemoglobin 11.9 g/dl (12.0-16.0); Mean Corpuscular HGB Conc 34 g/dl (31-36); Mean Corpuscular Hemoglobin 30 pg (27-31); Mean Corpuscular Volume 88 fL (80-97); Mean Platelet Volume 7 um3 (7.4-10.4); Red Blood Count 4.02 10^6/ul (4.0-5.4); Red Cell Distribution Width 13 % (10.5-15); White Blood Count 4.8 10^3/ul (3.5-10.8)
[2016-11-25 05:39] LABS: BUN/Creatinine Ratio 13.7 (8-20); Calcium 8.9 mg/dL (8.6-10.3); EGFR African American 47.2 (>60); EGFR Non-African American 36.7 (>60); Potassium 3.6 mmol/L (3.5-5.0)
[2016-11-25] MEDS: Levothyroxine TAB* 150 MCG TAB PO SCH (05:40)
[2016-11-25 08:02] VITALS: BP 110/70
[2016-11-25] MEDS: [UNRECOGNIZED DRUG - OTHER] PO SCH (08:17)
[2016-11-25] MEDS: Aspirin Low Dose CHEW TAB* 81 MG PO SCH (08:17)
[2016-11-25] MEDS: Topiramate TAB(*) 25 MG PO SCH (08:17)
--- NOTE | 2016-11-25 08:57 | ECHO ---
Patient: ELISABETH COCHRAN [facility] Rec#: [id number] : 1955 Date: 11/25/2016 Age: 61y Height: 162.56 cm / 64.0 in Weight: 73.48 kg / 161.9 lbs Sex: F BSA: 1.79 Room#: 433 Admit Date#: 11/22/2016 Type: Inpatient Referring: Babatunde Melissa Reading: Tao Vega MD Runner On: Elisabeth Espinosa RDCS CC: HARJIT MIRELES Transthoracic Echocardiogram Indication: TIA BP: 113/61 HR: 73 Rhythm: NSR Findings History: HLD,hypothyroid. Technical Comments: The study quality is good. Completed at 0830. Left Ventricle: The left ventricular chamber size is normal. Left ventricular systolic function is at the lower limits of normal. The estimated ejection fraction is 45-50%. There is no consistent Doppler evidence of clinically significant diastolic dysfunction. Left Atrium: The left atrial chamber size is normal. Right Ventricle: Moderator Band present. The right ventricular cavity size is normal. The right ventricular global systolic function is normal. Right Atrium: The right atrial cavity size is normal. A patent foramen ovale is visualized. A patent foramen ovale is demonstrated by agitated contrast. Aortic Valve: The aortic valve is trileaflet. There is no evidence of aortic regurgitation. There is no evidence of aortic stenosis. Mitral Valve: The mitral valve leaflets are mildly thickened. There is trace to mild mitral regurgitation. There is no evidence of mitral stenosis. Tricuspid Valve: The tricuspid valve leaflets are normal. There is no evidence of tricuspid valve regurgitation. No pulmonary hypertension is noted. There is no tricuspid stenosis. Pulmonic Valve: The pulmonic valve appears normal. There is a trace pulmonic regurgitation. There is no pulmonic stenosis. Pericardium: A pericardial fat pad is visualized. Aorta: There is no dilatation of the ascending aorta. There is no dilatation of the aortic arch. There is no dilation of the aortic root. Pulmonary Artery: The main pulmonary artery appears normal. Venous: The inferior vena cava appears normal in size. There is a greater than 50% respiratory change in the inferior vena cava dimension. Contrast: Normal saline was used as contrast for the bubble study. Intravenous contrast was used to help determine presence of intracardiac shunting. Conclusions Left ventricular systolic function is at the lower limits of normal. The estimated ejection fraction is 45-50%. There is no consistent Doppler evidence of clinically significant diastolic dysfunction. A patent foramen ovale is demonstrated by agitated contrast. There is no evidence of aortic stenosis. There is trace to mild mitral regurgitation. There is no evidence of tricuspid valve regurgitation. There is no dilatation of the ascending aorta. Measurements Name Value Normal Range RVIDd (AP) 2D 2.8 cm (0.9 - 2.6) RVDdMajor (2D) 2.9 cm (2.2 - 4.4) RAd ISD 4CH 3.9 cm (3.4 - 4.9) RA (A4C)W 3.3 cm (2.9 - 4.6) IVSd (2D) 1 cm (0.6 - 1) LVPWd (2D) 1.1 cm (0.6 - 1) LVIDd (2D) 3.5 cm (3.6 - 5.4) LVIDs (2D) 2.1 cm - LV FS (2D) 41 % (25 - 45) Aortic Annulus 1.9 cm (1.4 - 2.6) Ao root diameter (2D) 2.7 cm (2.1 - 3.5) Ascending Ao 2.7 cm (2.1 - 3.4) Aortic arch 1.9 cm (1.8 - 3.4) Descending Ao 0.5 cm - LA dimension (AP) 2D 3.5 cm (2.3 - 3.8) LAd ISD 4CH 5 cm (2.9 - 5.3) LA ISD 4CH W 3.5 cm (2.5 - 4.5) Name Value Normal Range LA ESV SP 4CH (A/L) 29 ml - LA ESV SP 2CH (A/L) 39 ml - LA ESV BP (A/L) 36 ml - LA ESV BP (A/L) index 20.13 ml/m2 - LA ESV SP 4CH (MOD) 27 ml - LA ESV SP 2CH (MOD) 38 ml - Name Value Normal Range MV E-wave Vmax 0.6 m/sec - MV deceleration time 264 msec - MV A-wave Vmax 0.9 m/sec - MV E:A ratio 0.68 ratio - LV septal e' Vmax 0.08 m/sec - LV lateral e' Vmax 0.11 m/sec - LV E:e' septal ratio 7.5 ratio - LV E:e' lateral ratio 5.45 ratio - Name Value Normal Range AV Vmax 1.1 m/sec - AV VTI 27.7 cm - AV peak gradient 5.07 mmHg - AV mean gradient 2.37 mmHg - LVOT Vmax 0.9 m/sec - LVOT VTI 19.5 cm - LVOT peak gradient 3.32 mmHg - LVOT mean gradient 1.71 mmHg - Name Value Normal Range TR Vmax 2.1 m/sec - TR peak gradient 18 mmHg - RAP 3 mmHg - RVSP 21 mmHg - IVC diameter 1.5 cm - Name Value Normal Range PV Vmax 0.6 m/sec - PV peak gradient 1.51 mmHg -
--- NOTE | 2016-11-25 12:56 | RAD ---
INDICATION: Carotid stenosis COMPARISON: None TECHNIQUE: Transverse and longitudinal scans of the carotid and vertebral arteries were performed with eastman scale, color Doppler, and spectral Doppler imaging. Stenosis criteria is based on flow velocities that correlate with visual internal carotid artery diameter (NASCET criteria) FINDINGS: Right carotid: There is no significant plaque.. There is no spectral broadening. The peak systolic velocity of the internal carotid artery is 112 cm/s and the peak diastolic velocity 41 cm/s. The ICA/CCA ratio is calculated at 1.2. This corresponds to a less than 50% diameter stenosis. The actual degree of stenosis is closer to 0. Left carotid: There is no significant plaque. There is no spectral broadening. The peak systolic velocity of the internal carotid artery is 77 cm/s and the peak diastolic velocity 27 cm/s. The ICA/CCA ratio is calculated at 0.9. This corresponds to a less than 50% diameter stenosis. The actual degree of stenosis is closer to 0 Right vertebral: Right vertebral waveforms are normal and the flow is antegrade. Left vertebral: Left vertebral waveforms are normal and the flow is antegrade. IMPRESSION: NO EVIDENCE OF A HEMODYNAMICALLY SIGNIFICANT STENOSIS. CPT II Codes: 3100F [facility]
--- NOTE | 2016-11-25 12:59 | RAD ---
INDICATION: Pain and swelling. COMPARISON: None TECHNIQUE: Duplex interrogation of the Lowerextremity was performed. FINDINGS: Deep veins: The common femoral, great saphenous, profunda femoris, proximal, mid, and distal deep femoral, popliteal, posterior tibial, and peroneal veins are patent. There is normal compressibility, augmentation, and phasic flow. Superficial veins: There are no findings of superficial thrombophlebitis. Popliteal fossa:There is no evidence of a popliteal cyst. Soft tissues:There is mild calf edema. IMPRESSION: No evidence of deep venous thrombosis
--- NOTE | 2016-11-26 02:55 | PN ---
PROGRESS NOTE: DATE OF PROGRESS NOTE: 11/25/16 LOCATION: Currently in room 433, bed 1. SUBJECTIVE: Overnight, the patient has had no new issues. She has had no new stroke-like symptoms including no numbness, tingling or weakness, no facial weakness or numbness. She is felt fine. She is anxious to go home, but is understanding why we are keeping her here and finishing the workup. She does state that over the last few weeks, she has had some aching around her right knee, but has noticed no significant redness or swelling in that area. Otherwise, occasional headaches, but has been doing well. OBJECTIVE: Vital Signs: Temperature of 98.0, pulse rate of 76, respiratory rate of 20, blood pressure 110/70, pulse ox 97%. Blood pressures have been well controlled. On physical exam, HEENT, she is normocephalic, atraumatic. Sclerae anicteric. Mucous membranes are moist. Oropharynx is clear. Neck is supple. Chest: Clear to auscultation bilaterally. Cardiovascular is regular rate and rhythm. Abdomen is nontender. Extremities: No clubbing, cyanosis, or edema. Neuro: No palpable cords or swelling in her legs bilaterally. Neurologic Exam: Awake, alert, and oriented x3. Speech is fluent. There is no dysarthria. Repetition is intact. Recall of recent and remote events is intact. Cranial Nerves: Pupils are equally round and reactive to light. Extraocular muscles are intact. Visual mon are full. Face is symmetric. Sensation is intact. Hearing is symmetric bilaterally. Tongue is midline. Palate raises symmetrically. She is spontaneously moving all extremities to antigravity, 5/5 throughout. No drift. DTRs are 1+ and symmetric in the upper and lower extremities bilaterally. Equivocal Babinski's. Sensation is intact to light touch and pinprick in all 4 extremities. [id number] and rapid alternating movements are significant for some mild intention tremor bilaterally , but no resting tremor. No dysmetria or dysdiadochokinesia. Gait: She has been ambulating without difficulty. LABORATORY DATA: Includes a CBC with diff this morning that was essentially normal. A basic metabolic panel with a chloride of 113, creatinine of 1.46 otherwise normal. She did have her echocardiogram done, which showed left ventricular function, the lower limits of normal 45% to 50%. No consistent Doppler evidence of clinically significant diastolic dysfunction or patent foramen ovale as demonstrated by agitated contrast. No evidence of aortic stenosis. Trace mild mitral regurg. No evidence of tricuspid valve regurg. No dilatation of the ascending aorta. Carotid ultrasounds are pending. ASSESSMENT AND PLAN: Ms. Preciado is a 61-year-old female who was admitted to the hospital with acute onset of lower lip numbness and left digits 3, 4 and 5 numbness that resolved after 15 to 20 minutes in the hospital. She has had no further episodes, has had some mild headaches, but otherwise has been doing well. Her workup today has been negative except for an echocardiogram that showed a patent foramen ovale. She does have evidence on MRI scanning of an old stroke in the right parietal region. At this point, my recommendations are as follows: 1. Continue her aspirin 81 mg daily, statin, blood pressure control. I did review the literature at this point in the setting of a cryptogenic stroke, a patent foramen ovale can be treated with aspirin. Studies show that this is effective as full strength anticoagulation without the risks of bleeding. Should she have another transient ischemic attack like episode, I think that we should consider full strength anticoagulation. 2. Lower extremity Dopplers to rule out DVT. 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 She has had some aching around her right knee, but I feel no palpable cords, so there is no swelling, my suspicion for DVT is low. 3. Followup with Cardiology. They can evaluate further for treatment options regarding her PFO in light of her old stroke. Again, I think that at this point treating her with an aspirin a day is reasonable. I discussed the risks and benefits with the patient and her as well as her [id number] regarding the risks and benefits of treating with full strength anticoagulation versus aspirin. The patient verbalized understanding. 4. She is to have a followup with me in 4 to 6 weeks. 5. We will obtain and review her carotid ultrasounds to make sure she has no evidence of disease which may need intervention. 6. She has to return to the ER immediately should she have any new stroke-like symptoms. [id number]/[facility] #: [id number] MTDD
--- NOTE | 2016-11-26 06:24 | DS ---
DISCHARGE SUMMARY: DATE OF ADMISSION: 11/22/16 DATE OF DISCHARGE: 11/25/16 ADMITTING AND ATTENDING PROVIDER: Babatunde Melissa MD. PRIMARY CARE PHYSICIAN: Rose Green MD. CHIEF COMPLAINT: Left 3rd, 4th, and 5th finger numbness, lower lip bilateral numbness, and speech impairment lasting 5 to 10 minutes. PRINCIPAL DIAGNOSES: 1. Transient Ischemic Attack. 2. Evidence of remote stroke, not previously known. 3. Patent foramen ovale (previously unknown). HISTORY OF PRESENT ILLNESS AND HOSPITAL COURSE: The patient is a 61-year-old female with past medical history of severe anxiety, depression, formerly with psychotic features, but now stabilized, hyperlipidemia, hypothyroidism who, on the day prior to admission, awoke approximately at 10 a.m. with 3rd, 4th and 5th finger numbness on left hand, unable to adequately grasp a cup, her lower lip on both sides and tongue were numb, and she was unable to speak to her dog. These symptoms lasted 5 to 10 minutes and then completely resolved. She saw her primary care physician, Dr. Rose Green, the next day, on the same day of admission, and was advised to present to [facility] Emergency Room. There she got a brain CT, noncontrast, which showed a small non-mass like region of eastman matter, white matter obscuration at the posterior right frontal lobe, which was suspicious for subacute infarct. Negative for any mass effect or intracranial hemorrhage. She was admitted for further workup of TIA versus stroke. Dr. Zev Cuba of Neurology was consulted. The patient received a brain MRI, which demonstrated evidence of an old stroke as evidenced by encephalomalacia at the right parietal lobe, and additionally few small bilateral cerebral white matter T2 hyperintensities, not entirely specific, but most suggestive of chronic small vessel ischemic disease. Of note, there was no restricted diffusion to indicate an acute or subacute stroke. The patient had an MRI of the head, which demonstrated normal variation, without pathological finding of the central intracranial arterial vasculature. The patient was admitted overnight for an echocardiogram and telemetry monitoring for any evidence of occult atrial fibrillation. No atrial fibrillation was noted throughout the course of the admission. The patient eventually got an echocardiogram on day #3, which demonstrated no ventricular thrombus, but did demonstrate a patent foramen ovale. The patient got a lower extremity Doppler, which did not demonstrate any evidence of current DVT. A carotid Doppler was performed, which did not show any evidence of stenosis. The patient was neurologically intact throughout the hospitalization stay and she will follow up with Dr. Cuba within 4 weeks. She was started on aspirin 81 mg daily. Her atorvastatin was increased from 10 mg to 40 mg daily. She was also referred to Dr. Jose Manuel Gonzales of [facility] for potential discussion of closure of this patent foramen ovale given the history of likely TIA and remote stroke. Otherwise, she will follow up with primary care physician, Dr. Rose Green, on 12/05/16 at 11:20 a.m. No other medication changes were made. DISCHARGE MEDICATIONS: Include: 1. Aspirin 81 mg daily. 2. Atorvastatin 40 mg daily. 3. Bupropion hydrobromide (Aplenzin) 522 mg p.o. daily. 4. Levothyroxine 150 mcg daily. 5. Topamax 50 mg p.o. b.i.d. 6. Clonazepam 2 mg p.o. q.h.s. 7. Risperidone 3 mg p.o. q.h.s. DISCHARGE DIET: Unrestricted, unchanged. ACTIVITY LEVEL: No restriction. FOLLOWUP: Followup as above with Dr. Green, Dr. Gonzales, and Dr. Cuba. TIME SPENT ON DISCHARGE: 30 minutes. [id number]/[facility] #: [id number] [facility]
== END 2016-11-25 14:35 | disposition home or self-care (01) | DRG 69 ==
LOC: ED 15:59 → OBSVTOIN 18:14 → MEDTELE 18:14
PROVIDERS: ADMIT Internal Medicine; ATTEND Internal Medicine
DX: G45.9 Transient cerebral ischemic attack, unspecified (principal); G93.89 Other specified disorders of brain; F41.9 Anxiety disorder, unspecified; E03.9 Hypothyroidism, unspecified; F32.9 Major depressive disorder, single episode, unspecified; E78.5 Hyperlipidemia, unspecified; R40.2412 Glasgow coma scale score 13-15, at arrival to emergency department; Z86.73 Personal history of transient ischemic attack (TIA), and cerebral infarction without residual deficits; Q21.1 Atrial septal defect; Z88.0 Allergy status to penicillin; Z82.49 Family history of ischemic heart disease and other diseases of the circulatory system; Z83.2 Family history of diseases of the blood and blood-forming organs and certain disorders involving the immune mechanism; Z83.3 Family history of diabetes mellitus; Z79.82 Long term (current) use of aspirin
CPT/HCPCS: 36415; 70450; 70544; 70551; 71020; 80048; 80053; 80320; 81003; 81015; 83605; 84484; 85025; 85610; 87086; 93005; 93306; 93880; 93970; A9270-GY; G0480

== ENCOUNTER 2024-01-03 17:36 | Observation (INO) ==
[2024-01-03] MEDS: methylPREDNISolone SOD SUCC 125 mg 2 ML VIAL IV ONE (19:06)
[2024-01-03] MEDS: Famotidine IV 10 MG/ML 2 ml VIAL (20 mg) IV SLOW PU ONE (19:07)
[2024-01-03 19:23] LABS: ABS Eosinophils 0.1 10^3/uL (0.0-0.5); ABS Lymphocytes 1.2 10^3/uL (1.0-4.8); ABS Monocytes 0.4 10^3/uL (0.0-0.9); ABS Neutrophils 5.1 10^3/uL (1.5-7.6); Eosinophil % 1.1 %; Hematocrit 39.8 % (35-45); Hemoglobin 13.4 g/dL (11.5-14.3); Lymphocyte % 17.3 %; Mean Corpuscular Hemoglobin 29.9 pg (27-33); Mean Corpuscular Hgb Conc 33.8 g/dL (31-36); Mean Corpuscular Volume 88.5 fL (80-97); Mean Platelet Volume 7.6 fL (7.5-11.2); Platelet Count 204 10^3/uL (150-450); Red Blood Count 4.49 10^6/uL (3.63-4.92); Red Cell Distribution Width 12.6 % (12-17); White Blood Count 6.8 10^3/uL (3.8-11.8)
[2024-01-03 20:18] LABS: ALT 13 U/L (7-52); AST 18 U/L (13-39); Albumin 4.2 g/dL (3.2-5.2); Alkaline Phosphatase 86 U/L (35-149); Anion Gap 7 mmol/L (2-16); Blood Urea Nitrogen 10 mg/dL (6-24); C Reactive Protein 1.31 mg/L (<8.01); CO2 Carbon Dioxide 28 mmol/L (22-32); Calcium 9.7 mg/dL (8.6-10.3); Chloride 108 mmol/L (101-111); Creatinine, Serum 1.01 mg/dL (0.51-0.95); Globulin 2.1 g/dL (2-4); Glucose 87 mg/dL (70-100); Potassium 4.1 mmol/L (3.5-5.0); Sodium 143 mmol/L (135-145); Total Bilirubin 0.8 mg/dL (0.2-1.0); Total Protein 6.3 g/dL (6.4-8.9); eGFR CKD-EPI 61.4 (>60)
[2024-01-03 20:34] LABS: Urine Appearance Clear; Urine Bilirubin Negative (Negative); Urine Blood Negative (Negative); Urine Color Colorless; Urine Glucose Negative (Negative); Urine Ketones Negative (Negative); Urine Nitrite Negative (Negative); Urine Protein Negative (Negative); Urine Specific Gravity 1.006 (1.002-1.030); Urine Urobilinogen Negative (Negative)
[2024-01-03 20:41] LABS: Urine Bacteria 1+ /HPF (Absent); Urine Red Blood Cell 1+(3-5/hpf) /HPF (0-Trace); Urine Squamous Epithelial Cell Present /HPF (Absent); Urine White Blood Cell Trace(0-5/hpf) /HPF (0-Trace)
[2024-01-04 02:16] LABS: % Iron Saturation 24 % (15-55); .Transferrin 219 mg/dL (203-362); Creatine Kinase 58 U/L (10-223); Iron 74 ug/dL (50-212); Total Iron Binding Capacity 307 mcg/dL (250-450); Unsaturated Iron Binding 233 ug/dL
[2024-01-04 02:37] LABS: Ferritin 72.1 ng/mL (11-307)
[2024-01-04 02:41] LABS: Folate > 20.00 ng/mL (5.90-24.80)
[2024-01-04 02:42] LABS: Vitamin B12 > 1450 pg/mL (180-914)
[2024-01-04 06:14] LABS: ABS Lymphocytes 0.5 10^3/uL (1.0-4.8); Hematocrit 37.5 % (35-45); Hemoglobin 12.6 g/dL (11.5-14.3); Lymphocyte % 15.3 %; Mean Corpuscular Hemoglobin 29.8 pg (27-33); Mean Corpuscular Hgb Conc 33.6 g/dL (31-36); Mean Corpuscular Volume 88.7 fL (80-97); Mean Platelet Volume 7.6 fL (7.5-11.2); Platelet Count 195 10^3/uL (150-450); Red Blood Count 4.23 10^6/uL (3.63-4.92); Red Cell Distribution Width 12.7 % (12-17); White Blood Count 3.6 10^3/uL (3.8-11.8)
[2024-01-04 06:42] LABS: Calcium 9.5 mg/dL (8.6-10.3); Magnesium 1.9 mg/dL (1.9-2.7); Potassium 4.3 mmol/L (3.5-5.0); eGFR CKD-EPI 62.1 (>60)
[2024-01-04] MEDS: BUPROPION HBR PO SCH (10:48)
[2024-01-04] MEDS: VALBENAZINE 40 MG PO SCH (10:48)
[2024-01-04] MEDS: cefTRIAXone 1 gm/50 mL D5W 1 GM/50 ML BAG IV SCH (16:51)
[2024-01-04] MEDS: Lactated Ringers 1000 ml BAG 1,000 ML IV ONE (17:35)
[2024-01-04] MEDS: Enoxaparin 40 MG/0.4 ML SYR SUBCUT SCH (20:46)
[2024-01-04] MEDS: Lactated Ringers 1000 ml BAG 1,000 ML IV SCH (21:29)
[2024-01-05 09:49] LABS: ABS Eosinophils 0.1 10^3/uL (0.0-0.5); ABS Lymphocytes 1.8 10^3/uL (1.0-4.8); ABS Monocytes 0.4 10^3/uL (0.0-0.9); ABS Neutrophils 3.5 10^3/uL (1.5-7.6); Hematocrit 36.1 % (35-45); Hemoglobin 12.1 g/dL (11.5-14.3); Lymphocyte % 31.2 %; Mean Corpuscular Hemoglobin 29.9 pg (27-33); Mean Corpuscular Hgb Conc 33.4 g/dL (31-36); Mean Corpuscular Volume 89.4 fL (80-97); Mean Platelet Volume 7.4 fL (7.5-11.2); Platelet Count 178 10^3/uL (150-450); Red Blood Count 4.03 10^6/uL (3.63-4.92); White Blood Count 5.9 10^3/uL (3.8-11.8)
[2024-01-05 10:06] LABS: Calcium 9.3 mg/dL (8.6-10.3); Creatinine, Serum 1.06 mg/dL (0.51-0.95); Magnesium 1.9 mg/dL (1.9-2.7); Potassium 3.8 mmol/L (3.5-5.0); eGFR CKD-EPI 57.9 (>60)
[2024-01-05] MEDS: Magnesium Hydroxide LIQ 30 ML UDC PO ONE (14:32)
[2024-01-05] MEDS: VALBENAZINE 40 MG PO SCH (23:47)
[2024-01-06 10:00] VITALS: BP 133/74
== END 2024-01-06 13:40 | disposition home or self-care (01) ==
LOC: EDHOLD 17:36 → ED 17:36 → EDHOLD 01-04 00:59 → MED 01-04 01:39
PROVIDERS: ADMIT Internal Medicine; ATTEND Internal Medicine